=== PATIENT | female | born 1995 | race Caucasian/White ===

== ENCOUNTER → 2020-10-14 11:13 | Outpatient (BNVA) | payer BC, SELFPAY | PROVIDERS: Family Provider Family Medicine; PCP Registered Nurse; Visit Provider Nurse Practitioner Family | DX: Z12.4 Encounter for screening for malignant neoplasm of cervix (principal); Z01.419 Encounter for gynecological examination (general) (routine) without abnormal findings | CPT/HCPCS: 88175 ==

== ENCOUNTER 2021-08-19 11:40 | Emergency (ER) | payer BC, MEDICAID, SELFPAY ==
[2021-08-19 11:53] VITALS: BP 127/83; PULSE 83; RESP 18; TEMP 36.2; O2SAT 98; BMI 203.3
--- NOTE | 2021-08-19 12:15 | W.ED.DENTAL ---
HPI - Dental/Oral General: Chief complaint: Dental/Oral Stated complaint: Swollen jaw, says she has a leision Time Seen by Provider: 08/19/21 12:01 History of Present Illness: Patient is a 25-year-old female who comes to the ED with oral lesion. Patient has a type right wisdom tooth that needs to be pulled, but was unable to get it done previously due to financial issues. She says that tooth creates a sore on her gums on bottom back right of jaw. Patient was recently diagnosed with strep throat and has been taking amoxicillin. Her sore throat is not improving much and she has been taking the amoxicillin now for 5 days. Associated symptoms: Denies fever(s) or odynophagia Review of Systems Const: Denies: fever(s), chills or fatigue Eyes: Denies: change in vision or eye discomfort ENMT: Reports: throat pain and oral sores; Denies: odynophagia, nasal discharge or nasal congestion Card: Denies: chest pain, palpitations, edema, swelling of feet/ankles, dyspnea on exertion or orthopnea Resp: Denies: dyspnea, productive cough or non-productive cough GI: Denies: abdominal pain, nausea, vomiting, diarrhea, constipation or hematochezia : Denies: flank pain, dysuria or hematuria Musc: Denies: neck pain, back pain or extremity swelling Skin/Breast: Denies: rash or new lesions Neuro: Denies: headache(s), numbness in extremities or weakness in extremities PFS ED PFSH: Medical History No pertinent family history No pertinent past medical history Social History Smoking and tobacco status: current some day smoker Alcohol intake: never Adopted: No Caregiver/support person: No Lives independently: No Household members: significant other and children service: No Current occupational status: unemployed History of recent travel: No Sexually active: Yes Current gender identity: Female Female Reproductive History: Date of last menstrual period: 10/03/20 Physical Exam Const: COMMON NORMALS: no acute distress, patient oriented x3 and alert GENERAL APPEARANCE: cooperative and comfortable HENMT: COMMON NORMALS: normocephalic HEAD & SCALP: normocephalic MOUTH: Normal oral and palatal mucosa present THROAT: uvula midline and posterior oropharynx abnormal erythema OTHER: Patient has small gingival ulceration in bottom back right mandible. No visible puslike drainage noted. Gingival edema and erythema noted. Neck/C-Spine: COMMON NORMALS: supple GENERAL: Yes normal visual inspection Resp: COMMON NORMALS: normal respiratory effort, No retractions, No use of accessory muscles and clear to auscultation bilaterally AUSCULTATION: clear to auscultation bilaterally Cardio: COMMON NORMALS: regular rate, regular rhythm, S1 normal heart sound present, S2 normal heart sound present, No gallops present (Cardio), No clicks present (Cardio), No murmurs present (Cardio) and Peripheral pulses 2+ throughout RATE: regular rate RHYTHM: regular rhythm HEART SOUNDS: S1 normal heart sound present and S2 normal heart sound present PERIPHERAL PULSES: Peripheral pulses 2+ throughout GI: COMMON NORMALS: Normal to inspection, nondistended, normoactive bowel sounds present, Soft to palpation, non-tender and no masses PALPATION: Yes Soft to palpation : COMMON NORMALS: Yes no CVA tenderness BLADDER/KIDNEY EXAM: Yes no CVA tenderness Back/Pelvis: COMMON NORMALS: no CVA tenderness Extremity: COMMON NORMALS: normal to inspection Neuro: COMMON NORMALS: patient oriented x3 and moves all extremities SENSORIUM/ORIENTATION: Yes alert Skin: GENERAL SKIN EXAM: dry skin Course Vital Signs: Vital signs: Vital Signs Temperature 97.2 F L 08/19/21 11:53 Pulse Rate 83 08/19/21 12:34 Respiratory Rate 18 08/19/21 12:34 Blood Pressure 123/83 08/19/21 12:34 Pulse Oximetry 97 08/19/21 12:34 [facility] - Dental/Oral Medical Decision Making Patient is a 25-year-old female who comes to the ED with sore throat and oral lesion. She was diagnosed with strep throat and has been on amoxicillin for the past 5 days and says her sore throat is not getting better. Patient has a ulcer in the back bottom right gingival area due to top wisdom tooth creating the sore. There is some erythema and some gingival edema but no puslike drainage. Patient also has posterior oropharynx erythema. Vitals are stable. She appears nontoxic in no acute distress or pain. Patient was diagnosed with oral mucosa ulceration pharyngitis and was discharged home with some clindamycin and Celebrex for pain. She was told to follow-up with her PCP in the next week for reevaluation and to contact a dentist to address dental issue. Patient understood and agreed with plan. Discharge Plan Discharge Patient Disposition: Home Clinical Impression: Ulceration, oral mucosa Pharyngitis Qualifiers: Pharyngitis/tonsillitis etiology: unspecified etiology Qualified Code(s): J02.9 - Acute pharyngitis, unspecified Condition: Stable Prescriptions: New clindamycin HCl 150 mg capsule 300 mg PO QID 7 Days Qty: 56 0RF Celebrex 100 mg capsule 100 mg PO BID PRN (Reason: pain) Qty: 20 0RF No Action norgestimate-ethinyl estradiol [Sprintec (28)] 0.25-35 mg-mcg tablet 1 tab PO DAILY Qty: 28 10RF metronidazole [Flagyl] 500 mg tablet 500 mg PO Q12H Qty: 14 0RF Discharge Orders: Discharge ED (Routine); Ordered 08/19/21 Ordered By: Gene Molina Referrals: Meredith Abdalla MD [Hospitalist] - Jose Nguyễn FNP [Primary Care Provider] - Discharge Diet: Regular Discharge Activity: Resume usual activity Activity Restrictions/Additional Instructions: Follow-up with medical provider as directed. Contact your dentist to get an appointment set up with to address dental issue. Take medications as prescribed. Return to the ER or your medical provider if condition worsens. Please read and understand discharge instructions. Thank you for choosing [facility] for your healthcare needs today. Please realize this is an emergency room and that we are providing you with a medical screening exam and this may not be complete and all inclusive of all the testing and or work up that you may need to determine your ailment or severity of your illness. It is very important that you follow up as instructed or that you return to the Emergency Department should you have concerns or if your condition changes or worsens in any way. 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
[2021-08-19 12:34] VITALS: BP 123/83; PULSE 83; RESP 18; O2SAT 97
[2021-08-19] MEDS: HYDROcodone-acetaminophen 5-325 mg Tablet 1 TAB PO (12:40)
[2021-08-19] MEDS: clindamycin 150 mg Capsule 300 MG PO (12:41)
== END 2021-08-19 12:46 | disposition home or self-care (01) ==
PROVIDERS: Emergency Provider Physician Assistant; PCP Registered Nurse
DX: K12.1 Other forms of stomatitis (principal); F17.210 Nicotine dependence, cigarettes, uncomplicated; J02.9 Acute pharyngitis, unspecified
CPT/HCPCS: 99283

== ENCOUNTER 2022-11-19 13:11 | Emergency (ER) | payer SELFPAY ==
[2022-11-19 13:14] VITALS: BP 110/66; PULSE 73; RESP 16; TEMP 36.6; O2SAT 99; BMI 24.1
--- NOTE | 2022-11-19 13:47 | W.ED.SKABFB ---
HPI - Skin/Abscess/Foreign Bdy General: Chief complaint: Skin/Abscess/Foreign Body Stated complaint: full body rash, wants an injection(?) Time Seen by Provider: 11/19/22 13:25 History of Present Illness: 27-year-old female presents emergency room with a rash for the past 3 days. Patient describes the rash as itching red lesions mostly on the right forearm and right thigh. Further reviews that she has been outside and exposed to poison merlyn or poison oak. denies any difficulty breathing, neck swelling, throat abnormalities. Review of Systems General: Reports: 10 or more systems reviewed and unremarkable except in HPI and below Skin/Breast: Reports: rash, pruritus, erythema, skin pain, skin tenderness and skin swelling; Denies: photosensitivity, new lesions, non-healing lesions, changes in skin color, jaundice or dry skin PFSH ED PFSH: Medical History No pertinent family history No pertinent past medical history Social History Smoking and tobacco status: current some day smoker Alcohol intake: never Substance/Drug Use: never Adopted: No Caregiver/support person: No Lives independently: No Household members: significant other and children service: No Current occupational status: unemployed Sexually active: Yes Do you think of yourself as: Straight/Heterosexual Current gender identity: Female Female Reproductive History: Date of last menstrual period: 11/15/22 Physical Exam Const: COMMON NORMALS: no acute distress, average body habitus, patient oriented x3, no limitations, healthy appearing, alert and well nourished HENMT: COMMON NORMALS: normocephalic, atraumatic, hearing grossly normal bilaterally, external ears normal, EAC's normal, TM's normal bilaterally, Normal external nose present, Normal nasal mucous membranes and turbinates present, moist oral mucous membranes, oropharynx normal, dentition normal and gingiva normal HEAD & SCALP: normocephalic and atraumatic NOSE: Normal external nose present and Normal nasal mucous membranes and turbinates present EXTERNAL EAR: Yes external ears normal EXTERNAL AUDITORY CANAL: EAC's normal TYMPANIC MEMBRANE: TM's normal bilaterally Neck/C-Spine: COMMON NORMALS: full ROM, no lymphadenopathy, supple, no meningeal signs, no JVD, Thyroid normal and No carotid bruits THYROID: Thyroid normal Chest: COMMONS NORMALS: normal inspection of the chest, normal palpation of entire chest wall, normal inspection of the breasts and normal palpation of the breasts Breast/axilla inspection: Yes normal inspection of the breasts BREAST/AXILLA PALPATION: Yes normal palpation of the breasts Resp: COMMON NORMALS: normal respiratory effort, No retractions, No use of accessory muscles, clear to auscultation bilaterally and percussion normal AUSCULTATION: clear to auscultation bilaterally PERCUSSION: percussion normal Cardio: COMMON NORMALS: no JVD Neuro: COMMON NORMALS: patient oriented x3 SENSORIUM/ORIENTATION: Yes alert MENINGEAL SIGNS: Yes no meningeal signs Skin: RASHES: rashes noted (right foreare and right thigh with rashes c/w contact dermatitis ) Course Vital Signs: Vital signs: Vital Signs Temperature 97.9 F 11/19/22 13:14 Pulse Rate 73 11/19/22 13:14 Respiratory Rate 16 11/19/22 13:14 Blood Pressure 110/66 11/19/22 13:14 Pulse Oximetry 99 11/19/22 13:14 Oxygen Delivery Me thod Room Air 11/19/22 13:14 MDM - Skin/Abscess/Foreign Bdy Medicial Decision Making Patient made comfortable emergency room. Discussed diagnosis with patient. Patient was given IM steroid and Benadryl patient reassured and discharged home with oral steroid and topical steroid. Discharge Plan Discharge Patient Disposition: Home Clinical Impression: Contact dermatitis Condition: Stable Prescriptions: New triamcinolone acetonide 0.5 % ointment 1 applic topical BID Qty: 15 0RF Medrol (Curt) 4 mg tablets,dose pack 4 mg PO DAILY Qty: 21 0RF No Action norgestimate-ethinyl estradiol [Sprintec (28)] 0.25-35 mg-mcg tablet 1 tab PO DAILY Qty: 28 10RF metronidazole [Flagyl] 500 mg tablet 500 mg PO Q12H Qty: 14 0RF Celebrex 100 mg capsule 100 mg PO BID PRN (Reason: pain) Qty: 20 0RF Discharge Orders: Discharge ED (Routine); Ordered 11/19/22 Ordered By: Meghann Marina Patient Instructions: Opioid Safety, Pain Management Coding Level of Care Code 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
[2022-11-19] MEDS: dexamethasone 10 mg/mL INJ IM (13:50)
[2022-11-19] MEDS: diphenhydrAMINE 50 mg/mL SDV 1mL IM (13:50)
== END 2022-11-19 14:08 | disposition home or self-care (01) ==
PROVIDERS: Emergency Provider Family Medicine
DX: L25.9 Unspecified contact dermatitis, unspecified cause (principal); Z79.899 Other long term (current) drug therapy; F17.200 Nicotine dependence, unspecified, uncomplicated
CPT/HCPCS: 96372; 99284; J1100; J1200

== ENCOUNTER 2023-08-02 12:27 | Emergency (ER) | payer SELFPAY ==
[2023-08-02 12:30] VITALS: BP 125/86; PULSE 79; RESP 15; TEMP 36.9; O2SAT 99; BMI 21.0
--- NOTE | 2023-08-02 13:18 | ED_ITS ---
HPI - Allergic Reaction General: Chief complaint: Allergic Reaction Stated complaint: rash Time Seen by Provider: 08/02/23 12:59 Source: patient Mode of arrival: ambulatory Limitations: no limitations History of Present Illness: HPI narrative: 27-year-old female states that she had e aten mushrooms yesterday and started to have a rash she had reactions to them in the past she has a rash to her arms and legs it is pruritic. Denies any fever denies any shortness of breath denies any worsening proving factors Associated symptoms: Deny abdominal pain, nausea or vomiting Review of Systems Const: Denies: fever(s), chills, body aches or change in appetite Eyes: Denies: blurry vision or eye discomfort ENMT: Denies: throat pain or dental pain Card: Denies: chest pain Resp: Denies: dyspnea GI: Denies: abdominal pain, nausea, vomiting or diarrhea Musc: Denies: neck pain or back pain Skin/Breast: Reports: rash Neuro: Denies: headache(s) PFSH ED PFSH: Medical History Nicotine dependence, other tobacco product, uncomplicated Vapes Psychiatric care Other stimulant dependence, uncomplicated No pertinent past medical history No pertinent family history Social History Smoking and tobacco/nicotine status: current some day tobacco/nicotine user Alcohol intake: never Substance/Drug Use: never Adopted: No Caregiver/support person: No Lives independently: No Household members: significant other and children service: No Current occupational status: unemployed Sexually active: Yes Do you think of yourself as: Straight/Heterosexual Current gender identity: Female Physical Exam Const: COMMON NORMALS: no acute distress, patient oriented x3 and healthy appearing HENMT: COMMON NORMALS: normocephalic and atraumatic HEAD & SCALP: normocephalic and atraumatic Neck/C-Spine: COMMON NORMALS: full ROM and supple Chest: COMMONS NORMALS: normal inspection of the chest Resp: COMMON NORMALS: normal respiratory effort, No retractions, No use of accessory muscles and clear to auscultation bilaterally AUSCULTATION: clear to auscultation bilaterally Cardio: COMMON NORMALS: regular rate, regular rhythm and No murmurs present (Cardio) RATE: regular rate RHYTHM: regular rhythm Extremity: COMMON NORMALS: normal to inspection and full ROM Neuro: COMMON NORMALS: patient oriented x3, moves all extremities and no focal motor deficits Psych: COMMON NORMALS: mental status grossly normal, Normal thought process present and cooperative THOUGHT PROCESS: Normal thought process present Skin: COMMON NORMALS: no wounds NARRATIVE SKIN EXAM: Rash noted to arms legs and trunk Course Vital Signs: Vital signs: Vital Signs Temperature 98.5 F 08/02/23 12:30 Pulse Rate 79 08/02/23 12:30 Respiratory Rate 15 08/02/23 12:30 Blood Pressure 125/86 08/02/23 12:30 Pulse Oximetry 99 08/02/23 12:30 Oxygen Delivery Me thod Room Air 08/02/23 12:30 MDM - Allergic Reaction Medical Decision Making Patient presents with a rash likely an allergic reaction she has no airway involvement we will place her on steroids Benadryl she is stable for discharge return if worsening. Medical Records I reviewed the patient's medical records. No radiology studies performed this visit Discharge Plan Discharge Patient Disposition: Home Clinical Impression: Allergic reaction, Rash Condition: Stable Prescriptions: New prednisone 50 mg tablet 50 mg PO DAILY Qty: 5 0RF No Action norgestimate-ethinyl estradiol [Sprintec (28)] 0.25-35 mg-mcg tablet 1 tab PO DAILY Qty: 28 10RF metronidazole [Flagyl] 500 mg tablet 500 mg PO Q12H Qty: 14 0RF Celebrex 100 mg capsule 100 mg PO BID PRN (Reason: pain) Qty: 20 0RF triamcinolone acetonide 0.5 % ointment 1 applic topical BID Qty: 15 0RF Medrol (Curt) 4 mg tablets,dose pack 4 mg PO DAILY Qty: 21 0RF Discharge Orders: Discharge ED (Routine); Ordered 08/02/23 Ordered By: Ana Phan Discharge Diet: Advance as tolerated Discharge Activity: Resume usual activity Patient Instructions: Allergic Reaction, Acute Rash (ED) Coding Level of Care Code 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
[2023-08-02] MEDS: diphenhydrAMINE 50 mg Capsule PO (13:19)
[2023-08-02] MEDS: predniSONE 20 mg Tablet 60 MG PO (13:19)
[2023-08-02 13:26] VITALS: BP 104/51; O2SAT 97
== END 2023-08-02 13:27 | disposition home or self-care (01) ==
PROVIDERS: Emergency Provider Emergency Medicine
DX: T78.1XXA Other adverse food reactions, not elsewhere classified, initial encounter (principal); R21 Rash and other nonspecific skin eruption; X58.XXXA Exposure to other specified factors, initial encounter; Z72.0 Tobacco use
CPT/HCPCS: 99283; J7512; Q0163

== ENCOUNTER 2023-08-06 16:04 | Emergency (ER) | payer SELFPAY ==
--- NOTE | 2023-08-06 16:08 | ECG_ITS ---
[facility] Test Date: 2023-08-06 Pat Name: Preethi Zepeda Department: Room: Gender: Female Cryptographer: : 1995 Requested By: Soni Will Order Number: [id number] Kemar MD: Oren Becerra M.D. Measurements Intervals [place] Rate: 74 P: 61 NC: 136 QRS: 94 QRSD: 85 T: 66 QT: 376 QTc: 418 Interpretive Statements SINUS RHYTHM POSSIBLE LEFT ATRIAL ENLARGEMENT [-0.1mV P-WAVE IN V1/V2] BORDERLINE RIGHT AXIS DEVIATION [QRS AXIS > 90] POSSIBLE RIGHT VENTRICULAR CONDUCTION DELAY [RSR (QR) IN V1/V2] INTERPRETATION BASED ON A DEFAULT AGE OF 40 YEARS No previous ECG available for comparison Electronically Signed On 08-07-2023 11:18:46 CDT by Oren Becerra M.D. [id number]
[2023-08-06 16:09] VITALS: BMI 21.9
[2023-08-06 16:12] VITALS: BP 134/87; PULSE 74; RESP 17; TEMP 37; O2SAT 98
--- NOTE | 2023-08-06 16:14 | XRR_ITS ---
PROCEDURE INFORMATION: Exam: XR Chest Exam date and time: 08/06/2023 4:32 PM Age: 27 years old Clinical indication: Chest wall pain; Additional info: Chest pain TECHNIQUE: Imaging protocol: Radiologic exam of the chest. Views: 1 view. COMPARISON: CR XR cervical spine 3V* [id number] 04/22/2019 8:20 PM FINDINGS: Lungs: Unremarkable. No consolidation. Pleural spaces: Unremarkable. No pleural effusion. No pneumothorax. Heart/Mediastinum: Unremarkable. No cardiomegaly. Bones/joints: Mild rightward thoracic curvature. No fracture. XR/XR chest 1V portable [id number] IMPRESSION: No acute findings.
--- NOTE | 2023-08-06 17:11 | ED_ITS ---
HPI - Anxiety 2 General: Chief Complaint: Anxiety Stated Complaint: chest pain Time Seen by Provider: 08/06/23 17:01 Source: patient Mode of arrival: ambulatory History of Present Illness: 27-year-old female presents to the emerg ency room with complaints of intermittent chest discomfort. She describes feeling a spasm or firm squeezing sensation in her chest that last for just a second and then resolves she feels like her heart is beating really hard. She states that she is frequently exacerbated by emotional stress or anger anxiety. No radiation of the discomfort. It is a little bit more noticeable since she started on steroids. Pt reports she has stress kovacs on her heart. MD complaint: anxiety Severity: mild Relieving factors: nothing Exacerbating factors: nothing Associated symptoms: Reports chest pain; Deny anorexia, chills, confusion, diaphoresis, fever(s), headache(s), malaise, nausea, palpitations, short of breath, syncope, vomiting or weakness Review of Systems 2 Const: Denies: fever(s), chills, malaise or diaphoresis Card: Reports: chest pain; Denies: palpitations or syncope Resp: Denies: dyspnea GI: Denies: nausea or vomiting : Denies: dysuria, urinary frequency or urinary urgency Musc: Denies: neck pain or back pain Skin/Breast: Denies: rash Neuro: Denies: headache(s) or confusion PFSH ED 2 PFSH: Medical History Nicotine dependence, other tobacco product, uncomplicated Vapes Psychiatric care Other stimulant dependence, uncomplicated No pertinent past medical history No pertinent family history Social History Smoking and tobacco/nicotine status: current some day tobacco/nicotine user Alcohol intake: never Substance/Drug Use: never Adopted: No Caregiver/support person: No Lives independently: No Household members: significant other and children service: No Current occupational status: unemployed Sexually active: Yes Do you think of yourself as: Straight/Heterosexual Current gender identity: Female Physical Exam 2 Const: COMMON NORMALS: no acute distress GENERAL APPEARANCE: cooperative and comfortable ORIENTATION/CONSCIOUSNESS: Yes awake, Yes oriented to person, Yes oriented to place and Yes oriented to time HENMT: COMMON NORMALS: normocephalic, atraumatic and hearing grossly normal bilaterally HEAD & SCALP: normocephalic and atraumatic Resp: COMMON NORMALS: normal respiratory effort, No retractions, No use of accessory muscles and clear to auscultation bilaterally AUSCULTATION: clear to auscultation bilaterally Cardio: COMMON NORMALS: regular rate, regular rhythm and No murmurs present (Cardio) RATE: regular rate RHYTHM: regular rhythm GI: COMMON NORMALS: Soft to palpation and No hepatosplenomegaly present A USCULTATION: Yes normoactive bowel sounds PALPATION: Yes Soft to palpation, No Tenderness to palpation present (GI), No Guarding due to palpation present (GI) and Yes No hepatosplenomegaly present Extremity: COMMON NORMALS: normal to inspection, capillary refill normal, no clubbing, cyanosis or edema, no calf tenderness and no pedal edema Neuro: SENSORIUM/ORIENTATION: Yes oriented to person, Yes oriented to place and Yes oriented to time Skin: COMMON NORMALS: no rashes or lesions noted GENERAL SKIN EXAM: no rashes or lesions noted Course 2 Vital Signs: Vital signs: Vital Signs Temperature 98.6 F 08/06/23 16:12 Pulse Rate 83 08/06/23 17:12 Respiratory Rate 17 08/06/23 16:12 Blood Pressure 116/81 08/06/23 17:12 Pulse Oximetry 99 08/06/23 17:12 Oxygen Delivery Me thod Room Air 08/06/23 17:12 MDM - Anxiety Medical Decision Making Based on her description of symptoms suspect she is having PACs or PVCs. Will give hydroxyzine to use as needed set up for an outpatient 48-hour Holter monitor and establish with a PCP return if is further problems Medical Records I reviewed the patient's medical records. Lab Data I reviewed the patient's lab results. 08/06/23 17:26 08/06/23 17:26 Radiology Impressions Chest X-Ray 08/06/23 16:14 IMPRESSION: No acute findings. Laboratory Results WBC 10.96 10^3/uL (3.29-11.43) 08/06/23 17:26 RBC 4.09 10^6/uL (3.85-5.65) 08/06/23 17:26 Hgb 12.70 g/dL (11.27-16.99) 08/06/23 17:26 Hct 37.9 % (36-47) 08/06/23 17:26 MCV 92.7 fl (85-98) 08/06/23 17:26 MCH 31.1 pg (27-33) 08/06/23 17:26 MCHC 33.5 g/dL (30-55) 08/06/23 17:26 RDW 12.7 % (12.1-15.1) 08/06/23 17:26 Plt Count 296 10^3/cmm (157-399) 08/06/23 17:26 MPV 11.4 fL (7.4-10.4) H 08/06/23 17:26 Neut % (Auto) 88.8 % 08/06/23 17:26 Lymph % (Auto) 10.3 % 08/06/23 17:26 [place] % (Auto) 0.4 % 08/06/23 17:26 Eos % (Auto) 0.0 % 08/06/23 17:26 Baso % (Auto) 0.1 % 08/06/23 17:26 Neut # (Auto) 9.74 10^3/uL (1.8-7.7) H 08/06/23 17:26 Lymph # (Auto) 1.1 10^3/uL (0.8-4.8) 08/06/23 17:26 [place] # (Auto) 0.0 10^3/uL (0.2-0.9) L 08/06/23 17:26 Eos # (Auto) 0.0 10^3/uL (0.0-0.8) 08/06/23 17:26 Baso # (Auto) 0.0 10^3/uL (0.0-0.1) 08/06/23 17:26 Nucleated RBC % (auto) 0 % 08/06/23 17:26 Nucleated RBCs # 0.0 /100WBC 08/06/23 17:26 All radiology interpretation(s) finalized by discharge Discharge Plan Discharge Patient Disposition: Home Clinical Impression: Anxiety, Palpitation Condition: Stable Prescriptions: New hydroxyzine HCl 25 mg tablet 25 mg PO Q6H PRN (Reason: anxiety) Qty: 10 0RF No Action norgestimate-ethinyl estradiol [Sprintec (28)] 0.25-35 mg-mcg tablet 1 tab PO DAILY Qty: 28 10RF metronidazole [Flagyl] 500 mg tablet 500 mg PO Q12H Qty: 14 0RF prednisone 50 mg tablet 50 mg PO DAILY Qty: 5 0RF Celebrex 100 mg capsule 100 mg PO BID PRN (Reason: pain) Qty: 20 0RF triamcinolone acetonide 0.5 % ointment 1 applic topical BID Qty: 15 0RF Medrol (Curt) 4 mg tablets,dose pack 4 mg PO DAILY Qty: 21 0RF Discharge Orders: Discharge ED (Routine); Ordered 08/06/23 Ordered By: Anuel Andujar Discharge Diet: Usual diet Discharge Activity: Resume usual activity Patient Instructions: Opioid Safety, Pain Management Activity Restrictions/Additional Instructions: Thank you for choosing [facility] for your healthcare needs today. Please realize this is an emergency room and that we are providing you with a medical screening exam and this may not be complete and all inclusive of all the testing and or work up that you may need to determine your ailment or severity of your illness. It is very important that you follow up as instructed or that you return to the Emergency Department should you have concerns or if your condition changes or worsens in any way. You are seen today for complaint of palpitations. Your EKG and laboratory tests were normal based on your description of symptoms suspect you are having PACs or PVCs. Case management will set you up for an outpatient 48-hour Holter monitor and help you establish with a primary care physician. You can use the hydroxyzine as needed for anxiety issues. Would continue to work with [facility] regarding management of your anxiety for long-term. 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
[2023-08-06 17:12] VITALS: BP 116/81; PULSE 83; O2SAT 99
[2023-08-06 17:32] LABS: Basophils % 0.1 %; Hematocrit 37.9 % (36-47); Lymphocytes # 1.1 10^3/uL (0.8-4.8); Lymphocytes % 10.3 %; Mean Corpuscular HGB Conc 33.5 g/dL (30-55); Mean Corpuscular Hemoglobin 31.1 pg (27-33); Mean Corpuscular Volume 92.7 fl (85-98); Mean Platelet Volume 11.4 fL (7.4-10.4); Monocytes % 0.4 %; Neutrophils # 9.74 10^3/uL (1.8-7.7); Neutrophils % 88.8 %; Nucleated Red Blood Cells % 0 %; Platelet Count 296 10^3/cmm (157-399); Red Blood Count 4.09 10^6/uL (3.85-5.65); Red Cell Distribution Width 12.7 % (12.1-15.1); White Blood Count 10.96 10^3/uL (3.29-11.43)
[2023-08-06 17:52] LABS: Alanine Aminotransferase 26 U/L (0-33); Albumin Level 4.5 g/dL (3.5-5.2); Alkaline Phosphatase 78 U/L (35-105); Anion Gap 14.9 (5-19); Aspartate Amino Transferase 20 U/L (0-32); Blood Urea Nitrogen 15 mg/dL (6-20); Carbon Dioxide 24 mmol/L (22-29); Chloride 104 mmol/L (98-107); Creatinine Clr Calc Pharmacy 138.2917; Glucose 134 mg/dL (65-115); Osmolality Calculated 291 mOsm/kg (285-295); Potassium 3.9 mmol/L (3.5-5.1); Sodium 139 mmol/L (136-145); Total Bilirubin 0.2 mg/dL (0.15-1.2); Total Protein 7.5 g/dL (6.6-8.7)
[2023-08-06 18:20] VITALS: BP 116/81; PULSE 83; RESP 17; TEMP 37; O2SAT 99
== END 2023-08-06 18:24 | disposition home or self-care (01) ==
PROVIDERS: Emergency Provider Family Medicine
DX: F41.9 Anxiety disorder, unspecified (principal); R00.2 Palpitations; Z72.0 Tobacco use
CPT/HCPCS: 36415; 71045; 80053; 85025; 93005; 99285

== ENCOUNTER 2024-12-17 10:35 | Inpatient (IN) | payer MEDICAID, SELFPAY ==
[2024-12-17] VITALS (45 sets, daily range): BP systolic 96–178; BP diastolic 41–86; PULSE 56–109; RESP 16–18; TEMP 36.7–36.8; O2SAT 98–100; BMI 27.6
[2024-12-17 11:11] LABS: Hematocrit 34.7 % (36-47); Hemoglobin 11.40 g/dL (11.27-16.99); Mean Corpuscular HGB Conc 32.9 g/dL (30-55); Mean Corpuscular Hemoglobin 27.9 pg (27-33); Mean Corpuscular Volume 84.8 fl (85-98); Nucleated Red Blood Cells % 0 %; Platelet Count 202 10^3/cmm (157-399); Red Blood Count 4.09 10^6/uL (3.85-5.65); White Blood Count 10.64 10^3/uL (3.29-11.43)
[2024-12-17 11:19] LABS: PCP Screen Urine Negative (Negative)
[2024-12-17] MEDS: SODIUM CHLORIDE 0.9% IV (11:26)
[2024-12-17] MEDS: PENICILLIN POTASSIUM IV (11:26)
[2024-12-17] MEDS: fentaNYL 50 mcg/mL INJ 2mL IVP ×2 (11:45→13:35)
[2024-12-17] MEDS: ROPivacaine syringe 100 MG/50 ML SYRINGE 13 MG EPIDURAL (14:20)
--- NOTE | 2024-12-17 14:30 | ANES.PREANE2 ---
Pre-Anesthetic Assessment Height/Weight: Height 1.56 m Weight 67.585 kg Temp Pulse Resp BP Pulse Ox O2 Del Method 98.2 F 69 16 116/66 99 Room Air 12/17/24 10:22 12/17/24 15:00 12/17/24 13:35 12/17/24 15:00 12/17/24 14:16 12/17/24 10:45 Preop Diagnosis: IUP Epidural Familial anesthetic complications: None Social No alcohol and No tobacco Exam alert, oriented x 3, clear to auscultation bilaterally and regular rate & rhythm Airway Mallampati: Class I Anesthetic Plan ASA status: 2 Anesthesia: Regional (specify below) Risk of > 500 ml blood loss (7ml/kg in children): Yes, adequate IV access and fluids planned Medications/Allergies Home Medications ?Medication ?Instructions ?Recorded ?Confirmed ?Last Taken ?Type propranolol 10 mg tablet 10 mg PO BID PRN anxiety #60 tabs 06/27/24 06/27/24 Unknown Rx Allergies Allergy/AdvReac Type Severity Reaction Status Date / Time No Known Allergies Allergy Verified 06/27/24 09:52 Current Medications Generic Name Dose Route Start Last Admin Trade Name Freq PRN Reason Stop Dose Admin Fentanyl 25 - 100 mcg 12/17/24 11:36 12/17/24 13:35 Fentanyl 50 Mcg/Ml Inj 2ml IVP 50 mcg Q1H PRN Administration SEVERE PAIN Penicillin G Potassium 2,500,000 unit in 50 mls @ 50 mls/hr 12/17/24 15:00 12/17/24 14:55 IV 50 mls/hr Q4H SREE Administration Protocol Dextrose/Lactated Ringer's 1,000 mls @ 125 mls/hr 12/17/24 11:00 12/17/24 11:26 Dextrose 5%-Lactated Ringers IV 125 mls/hr .Q8H SREE Administration Ropivacaine 100 mg in 50 mls @ 13 mls/hr 12/17/24 13:45 12/17/24 14:20 Naropin Syringe EPIDURAL 13 mls/hr .Q3H51M SREE Administration Sodium Chloride 1,000 mls @ 999 mls/hr 12/17/24 13:39 12/17/24 13:44 Sodium Chloride 0.9% IV 999 mls/hr .Q1H1M PRN Administration See label comments PFSH Anesthesia Medical History (Updated 11/14/23 @ 14:54 by Allan Ruiz MD) Nicotine dependence, other tobacco product, uncomplicated Vapes Psychiatric care Other stimulant dependence, uncomplicated No pertinent past medical history No pertinent family history Social History Smoking and tobacco/nicotine status: current some day tobacco/nicotine user Alcohol intake: never Substance/Drug Use: never Adopted: No Caregiver/support person: No Lives independently: No Household members: significant other and children service: No Current occupational status: unemployed Sexually active: Yes Do you think of yourself as: Straight/Heterosexual Current gender identity: Female Female Reproductive History : 2 Data Anesthesia 12/17/24 10:50 Short CBC 12/17/24 Range/Units 10:50 WBC 10.64 (3.29-11.43) 10^3/uL Hgb 11.40 (11.27-16.99) g/dL Hct 34.7 L (36-47) % MCV 84.8 L (85-98) fl Plt Count 202 (157-399) 10^3/cmm Neut % (Auto) 76.6 % Neut # (Auto) 8.15 H (1.8-7.7) 10^3/uL Blood Bank 12/17/24 10:50 Blood Type A Positive Rho(D) Type Rh positive Antibody Screen Negative Anesthesia Procedures Epidural Time Out Performed: Yes Consents Signed: Procedure Consent Consent: requested by attending/covering physician, from patient, from other, risks and benefits reviewed and patient agrees to proceed Lumbar Level: L2-L3 Epidural position: sitting Epidural procedure: sterile prep of area, 1% lidocaine to numb the area, 18 g needle, negative for paresthesia passed, neg for paresthesia, test dose given, 1.5% xylocaine 1:200k epi (5 cc), 0.2% Ropivacaine bolus ml (5), placed PCEA, no systemic response, sterile dressing applied, L.U.D. no apparent complications and 0.2% Ropiavacaine @ mls/hr (10) Additional Comments: PADMAJA 4.5 c, threaded to 10.5 cm
[2024-12-17] MEDS: PENICILLIN G POTASSIUM 2,500,000 UNIT/50 ML BAG 50 UNIT IV (14:55)
--- NOTE | 2024-12-17 15:30 | P.ANESUD_ITS ---
Pre-Anesthetic Update Pre-Anesthetic Assessment: Date of Surgery/Procedure: 12/21/24 Preop Fabiola gnosis: IUP Proposed Procedure: Operation Date: 12/17/24 15:45 Proposed Procedures p Section(Not Applicable) - Sharon Reyes MD Any changes to Pre-Anesthetic Assessment?: No Last Intake: Intake Last Liquid Date 12/17/24 Last Liquid Time 10:00 Last Solid Date 12/17/24 Last Solid Time 09:00 Vitals: Temperature 98.5 F 12/19/24 17:50 Temperature Source Oral 12/19/24 17:50 Pulse Rate 80 12/19/24 17:50 Pulse Rhythm Regular 12/17/24 10:45 Pulse Strength 3+ Normal 12/17/24 10:45 Respiratory Rate 18 12/19/24 17:50 Respiratory Effort Spontaneous, Non- Labored 12/19/24 09:00 Respiratory Depth Normal 12/19/24 09:00 Respiratory Patter n Normal 12/19/24 09:00 Blood Pressure 135/80 12/19/24 17:50 Blood Pressure Halle n 98 12/19/24 17:50 Pulse Oximetry 98 12/19/24 17:50 Oxygen Delivery Me thod Room Air 12/19/24 17:50 Exam: Pre-Anes Outpt Exam: alert, oriented x 3, clear to auscultation bilaterally and regular rate & rhythm Other Pertinent Information: Other Pertinent Information: Epidural for
[2024-12-17] MEDS: citric acid-sodium citrate 30 mL UDC PO (15:37)
[2024-12-17] MEDS: ceFAZolin 2,000 mg SDV 2000 MG IVP (15:37)
[2024-12-17] MEDS: metoclopramide 5 mg/mL SDV 2 mL 10 MG IVP (15:37)
--- NOTE | 2024-12-17 17:00 | ANE.PACU2 ---
Inpatient post-anesthesia follow up: Airway intact: Yes Vital signs: Temperature 98.5 F Pulse Rate 80 Respiratory Rate 18 Blood Pressure 135/80 Pulse Oximetry 98 Oxygen Delivery Me thod Room Air Oxygen Flow Rate Fraction of Inspir ed Oxygen Hydration adequate: Yes Nausea and vomiting: No Pain level: 1 Mental status: Baseline Epidural Start/End: Epidural Start Date: 12/17/24 Epidural Start Time: 14:00 Epidural End Date: 12/17/24 Epidural End Time: 16:47
--- NOTE | 2024-12-17 17:01 | PM.OPHPUD ---
Labor & Delivery H&P Update Date of Procedure: December 17, 2024 Date H&P Performed: 12/10/24 Admission Diagnosis: IUP at 39 weeks 3 days gestation in active labor Preop diagnosis: IUP Planned procedure: Expectant management of labor and delivery
--- NOTE | 2024-12-17 17:04 | P.OP_ITS ---
Operative Report Date of procedure: December 17, 2024 Pre-op diagnosis: Nonreassuring heart tones Failure to progress Procedure done: Primary low-transverse section Via Pfannenstiel skin incision Surgeon: Sharon Reyes MD Anesthesia: Epidural Estimated blood loss (mL): 500 IV fluids (mL): 1,500 Urine output (mL): 200 Complications: None Brief History: This is a 29-year-old G2, P1 at 39 weeks 3 days gestation who presented to labor and delivery in active labor. She had a prolonged deceleration due to tachysystole as well as a failure to progress as expected. The 's head was extremely cone-shaped and a -3 station so much so that I could not feel sutures and did ultrasound to verify vertex. The patient was not on any augmentation so her tachysystole was spontaneous. Procedure: The patient was taken to the OR where adequate epidural anesthesia was verified. She was prepped and draped in normal sterile fashion in dorsal supine position with a left lateral tilt. A Pfannenstiel skin incision was made and carried through to the underlying layer of fascia sharply using the scalpel. The fascial incision was extended laterally using the Mayos. The fascia was grasped with Lui clamps and the underlying rectus muscles were dissected off taking care to avoid injury to the underlying tissue. The peritoneum was then entered bluntly using a hemostat. The incision site was manually stretched. The bladder blade was inserted. The vesicouterine peritoneum was identified and entered sharply using the Metzenbaums. The bladder flap was created digitally and the bladder blade was reinserted Uterine incision was made in a transverse fashion in the lower uterine segment. Amniotic membrane was ruptured sharply with lightly meconium stained fluid noted. The was delivered in vertex presentation and had bulb suction of the mouth and naris at delivery. The cord was clamped and cut and the w as handed to the waiting pediatric nurse. Apgars were 8 and 9, weight 6 pounds 12 ounces, 3055 g . Cord blood was obtained. The placenta was delivered grossly intact using fundal pressure. The uterus was then exteriorized from the abdomen and a dry sponge was used to clear the uterus of clots and debris. The uterine incision was then repaired using 0 chromic in a running locked fashion. A sec ond layer of the same suture was used in an imbricating manner. Hemostasis was obtained. The uterus was then returned to the abdomen. Irrigation was used to clear the gutters of clots and debris and the uterine incision was reinspected for hemostasis. The fascia was then reapproximated using 0 Vicryl in a running locked fashion. The subfascial tissue was inspected for hemostasis and irrigated. The subfascial tissue was then reapproximated using 4-0 Vicryl in a running fashion. The skin was then reapproximated using 4-0 Vicryl in a running fashion on a Mark needle. Steri-Strips and a pressure bandage were applied and the patient went to recovery in good condition. Sponge instrument and needle counts were correct.
--- NOTE | 2024-12-17 17:41 | PC.NURSE ---
REMAINS IN OR
[2024-12-17] MEDS: HYDROcodone-acetaminophen 5-325 mg Tablet PO (20:51)
[2024-12-17] MEDS: ferrous sulfate EC 325 mg Tablet PO (20:52)
[2024-12-18] VITALS (8 sets, daily range): BP systolic 102–125; BP diastolic 56–67; PULSE 61–78; RESP 16; TEMP 36.2–36.9
[2024-12-18] MEDS: HYDROcodone-acetaminophen 5-325 mg Tablet PO ×3 (04:50→17:55)
[2024-12-18 06:48] LABS: Hematocrit 28.3 % (36-47); Hemoglobin 9.10 g/dL (11.27-16.99); Mean Corpuscular HGB Conc 32.2 g/dL (30-55); Mean Corpuscular Hemoglobin 27.7 pg (27-33); Mean Corpuscular Volume 86.0 fl (85-98); Platelet Count 140 10^3/cmm (157-399); Red Blood Count 3.29 10^6/uL (3.85-5.65); White Blood Count 9.29 10^3/uL (3.29-11.43)
[2024-12-18] MEDS: PRENATAL VIT NO.130/IRON/FOLIC 1 EACH TABLET PO (09:24)
[2024-12-18] MEDS: ferrous sulfate EC 325 mg Tablet PO ×2 (09:24→17:55)
--- NOTE | 2024-12-18 16:36 | P.PN_ITS ---
Subjective 2 Subjective: Postop day #1 primary section for nonreassuring heart tones and failure to progress. She is doing well. She just got up and took a shower. She is having more pain than before but that is to be expected as the long-acting epidural medicine is wearing off. She has passed flatus and is tolerating a regular diet. Vitals/I&O/Wt Last Vital Signs Temp 98.1 F 12/18/24 09:30 Pulse 63 12/18/24 09:26 Resp 16 12/18/24 09:30 BP 119/59 12/18/24 09:26 Pulse Ox 98 12/17/24 17:15 O2 Del Method Room Air 12/18/24 09:30 12/18/24 12/18/24 12/18/24 06:59 14:59 22:59 Intake Total 1000 / 4625 Output Total 1000 / 2500 Balance 0 / 2125 Weight last 48 hrs Weight 67.585 kg Physical Exam 2 Narrative: Alert and oriented, heart regular rate and rhythm, lungs clear to auscultation bilaterally, abdomen is soft with appropriate postoperative tenderness, Steri- Strips are clean and intact, they are moist due to recent shower, extremities have no calf tenderness Urinary Catheter Management: Mayo: Cath Placed During This Visit: yes Urinary Catheter Date of Insertion: 12/17/24 Urinary Catheter Time of Insertion: 14:50 Data 12/18/24 04:30 A&P Assessment and plan 1. Status post primary low transverse section: Continue routine postoperative care Likely discharge home tomorrow if still doing well. PDMP PDMP Reviewed: Not Reviewed Attestations 2 Medical Necessity Statement*: Routine and postoperative care Coding Level of Care Code Acute Code for Chg Fwd Diagnoses Status post primary low transverse section Z98.891
[2024-12-19] MEDS: HYDROcodone-acetaminophen 5-325 mg Tablet PO ×2 (00:15→07:18)
[2024-12-19 04:06] VITALS: BP 108/60; PULSE 64
[2024-12-19] MEDS: ferrous sulfate EC 325 mg Tablet PO (07:18)
[2024-12-19] MEDS: PRENATAL VIT NO.130/IRON/FOLIC 1 EACH TABLET PO (08:51)
[2024-12-19 09:40] VITALS: BP 125/68; PULSE 80
[2024-12-19 09:49] VITALS: RESP 18; TEMP 36.7; O2SAT 98
[2024-12-19 16:00] VITALS: BP 132/70; PULSE 60; RESP 16; TEMP 37.1; O2SAT 100
--- NOTE | 2024-12-19 16:43 | P.DS_ITS ---
Discharge Providers Date of Admission: 12/17/24 10:35 Date of Discharge: December 19, 2024 Attending Provider at Admission: Sharon Reyes MD Attending Provider at Discharge: Sharon Reyes MD Diagnoses at Discharge Discharge Diagnosis 1. Status post primary low transverse section: Reason for Visit Reason for Visit: r/o labor Hospital Course Hospital Course This is a 29-year-old G2 now P2 who had a primary low-transverse section secondary to nonreassuring heart tones. It is postop day #2 and she is doing well. She is ambulating, tolerating a regular diet, has pain control and is comfortable with discharge home. Physical Exam Narrative: Alert and oriented sitting up in bed, heart regular rate and rhythm, lungs clear to auscultation bilaterally, abdomen is soft with appropriate postoperative tenderness, incision is clean dry and intact with Steri-Strips in place, extremities have trace edema but no calf tenderness Urinary Catheter Management: Mayo: Cath Placed During This Visit: yes Urinary Catheter Date of Insertion: 12/17/24 Urinary Catheter Time of Insertion: 14:50 Discharge Data Studies Completed and Pending Laboratory Results WBC 9.29 10^3/uL (3.29-11.43) 12/18/24 04:30 RBC 3.29 10^6/uL (3.85-5.65) L 12/18/24 04:30 Hgb 9.10 g/dL (11.27-16.99) L 12/18/24 04:30 Hct 28.3 % (36-47) L 12/18/24 04:30 MCV 86.0 fl (85-98) 12/18/24 04:30 MCH 27.7 pg (27-33) 12/18/24 04:30 MCHC 32.2 g/dL (30-55) 12/18/24 04:30 RDW 19.3 % (12.1-15.1) H 12/18/24 04:30 Plt Count 140 10^3/cmm (157-399) L D 12/18/24 04:30 MPV 12.3 fL (7.4-10.4) H 12/18/24 04:30 Neut % (Auto) 76.6 % 12/17/24 10:50 Lymph % (Auto) 18.2 % 12/17/24 10:50 [place] % (Auto) 4.2 % 12/17/24 10:50 Eos % (Auto) 0.3 % 12/17/24 10:50 Baso % (Auto) 0.3 % 12/17/24 10:50 Neut # (Auto) 8.15 10^3/uL (1.8-7.7) H 12/17/24 10:50 Lymph # (Auto) 1.9 10^3/uL (0.8-4.8) 12/17/24 10:50 [place] # (Auto) 0.5 10^3/uL (0.2-0.9) 12/17/24 10:50 Eos # (Auto) 0.0 10^3/uL (0.0-0.8) 12/17/24 10:50 Baso # (Auto) 0.0 10^3/uL (0.0-0.1) 12/17/24 10:50 Nucleated RBC % (auto) 0 % 12/17/24 10:50 Nucleated RBCs # 0.0 /100WBC 12/17/24 10:50 Urine Opiates Screen Negative ng/mL (Negative) 12/17/24 10:40 Ur Barbiturates Screen Negative ng/mL (Negative) 12/17/24 10:40 Ur Phencyclidine Scrn Negative ng/mL (Negative) 12/17/24 10:40 Ur Amphetamines Screen Negative ng/mL (Negative) 12/17/24 10:40 U Benzodiazepines Scrn Negative ng/mL (Negative) 12/17/24 10:40 Urine Cocaine Screen Negative ng/mL (Negative) 12/17/24 10:40 U Marijuana (THC) Screen Positive ng/mL (Negative) H 12/17/24 10:40 Blood Type A Positive 12/17/24 10:50 Rho(D) Type Rh positive 12/17/24 10:50 Antibody Screen Negative 12/17/24 10:50 Vitals Last Vital Signs Temp 98.7 F 12/19/24 16:00 Pulse 60 12/19/24 16:00 Resp 16 12/19/24 16:00 BP 132/70 12/19/24 16:00 Pulse Ox 100 12/19/24 16:00 O2 Del Method Room Air 12/19/24 16:00 Discharge Plan Discharge Patient Disposition: Home Condition: Stable Prescriptions: New ibuprofen 800 mg Tablet 800 mg PO TID PRN (Reason: Abdominal Discomfort) Qty: 40 0RF hydrocodone-acetaminophen 5-325 mg Tablet 1 - 2 tab PO Q4H PRN (Reason: Moderate To Severe Pain) Qty: 12 0RF docusate sodium 100 mg Capsule 100 mg PO BID Qty: 60 0RF Continued propranolol 10 mg tablet 10 mg PO BID PRN (Reason: anxiety) Qty: 60 2RF Discharge Order = DC NOW: Discharge Order (Routine); Ordered 12/19/24 Ordered By: Sharon Reyes Referrals: Sharon Reyes MD [Physician, Family Practice] - 12/24/24 11:00 am Discharge Diet: Usual diet Discharge Activity: Limit activity as instructed Patient Instructions: Hydrocodone/Acetaminophen (By mouth) (Vicodin, [place]), Ibuprofen (By mouth), Vitamins (By mouth), Laxative, Stool Softeners (By mouth) (Doculax, Colace, Colace Clear, DSS), Depression (DC), Opioid Safety (DC), Preeclampsia and Eclampsia After Delivery (GEN), Hemorrhage (DC), OB - Mona/Eric, OB Discharge Report, OB Food/Drug Interaction Guide, OB Care at Home, Opioid Safety, Patient Portal & José Instructions, Abnormal Bleeding Activity Restrictions/Additional Instructions: Nothing per vagina for 6 weeks. No lifting greater than 10 pounds for 2 weeks. Keep incision site clean and dry Discharge Attestations Time Spent in Discharge Care*: less than 30 min Quality Metrics Clinical Quality Measures [ No reported AMI, CVA or VTE this stay] Coding Level of Care Code Acute Code for Chg Fwd Diagnoses Status post primary low transverse section Z98.891
[2024-12-19 17:50] VITALS: BP 135/80; PULSE 80; RESP 18; TEMP 36.9; O2SAT 98
== END 2024-12-19 18:00 | disposition home or self-care (01) | DRG 788 ==
LOC: OPOB 10:36 → OBGYN 10:36
PROVIDERS: Admitting Provider Family Medicine; Visit Provider Family Medicine
PROC: 10D00Z1 Extraction of Products of Conception, Low, Open Approach (ICD-10-PCS; CPT 59514; principal; 2024-12-17 15:45)
DX: O76 Abnormality in fetal heart rate and rhythm complicating labor and delivery (principal); O77.0 Labor and delivery complicated by meconium in amniotic fluid; Z3A.39 39 weeks gestation of pregnancy; Z37.0 Single live birth
CPT/HCPCS: 36415; 51702; 59025; 59409; 80306; 83986; 85025; 85027; 86850; 86900; 99211; J0690; J1885; J2405; J2540; J2765; J2795; J3010; J7030; J7121; J9999

== ENCOUNTER → 2025-01-10 13:12 | Outpatient (BNVA) | payer OTHER, SELFPAY | PROVIDERS: Visit Provider Psychiatry & Neurology Psychiatry | DX: F41.1 Generalized anxiety disorder (principal); F10.21 Alcohol dependence, in remission | CPT/HCPCS: 80061; 83036 ==

== ENCOUNTER 2025-01-11 12:00 | Emergency (ER) | payer MEDICAID, SELFPAY ==
[2025-01-11 12:02] VITALS: BP 131/79; PULSE 83; RESP 16; TEMP 36.9; O2SAT 97; BMI 21.4
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
== END 2025-01-11 12:29 | disposition home or self-care (01) ==
PROVIDERS: Emergency Provider Physician Assistant
DX: Z04.1 Encounter for examination and observation following transport accident (principal)
CPT/HCPCS: 99281